=== PATIENT | female | born 1995 ===

== ENCOUNTER 2020-01-16 15:26 | Emergency (ER) | payer BC ==
[2020-01-16 15:36] VITALS: BP 120/54; PULSE 87
[2020-01-16] MEDS ORDERED: Ondansetron 4 MG Tab.DIS PO ONE (16:04)
[2020-01-16] MEDS ORDERED: Ketorolac 60 MG/2 ML SDV IM ONE (16:51)
[2020-01-16] MEDS ORDERED: diphenhydrAMINE 50 MG Cap PO STA (16:51)
--- NOTE | 2020-01-16 16:56 | EDM.PDOC ---
ED HPI GENERAL MEDICAL PROBLEM - General Chief Complaint: General Stated Complaint: HEADACHE COVID Time Seen by Provider: 01/16/20 15:55 Source of Information: Reports: Patient History Limitations: Reports: No Limitations - History of Present Illness INITIAL COMMENTS - FREE TEXT/NARRATIVE: HISTORY AND PHYSICAL: History of present illness: Patient is a 25-year-old female who presents to the ED today with desire for medication to help alleviate COVID-19 symptoms. Patient states her and her were both diagnosed with COVID-19 on 01/13/2020 and states that since then she has had a headache, nausea without vomiting, and loss of taste and smell. Patient states she also has generalized body aches. Patient states that she has issues with migraines and feels that the COVID-19 has triggered a migraine and would like some medication to help decrease her migraine symptoms. Patient denies any head injury or trauma. Patient states that she took 1 dose of Aleve earlier this morning but has not taken any others medications for her symptoms today. Patient denies any health history. Patient denies fever, chills, chest pain, shortness of breath, or cough. Denies neck stiff ness, change in vision, syncope, or near syncope. Denies vomiting, abdominal pain, diarrhea, constipation, or dysuria. Has not noted any blood in urine or stool. Review of systems: As per history of present illness and below otherwise all systems reviewed and negative. Past medical history: As per history of present illness and as reviewed below otherwise noncontributory. Surgical history: As per history of present illness and as reviewed below otherwise noncontributory. Social history: See social history for further information Family history: As per history of present illness and as reviewed below otherwise noncontributory. Physical exam: General: Patient is alert, oriented, and in no acute distress. Patient sitting comfortably on exam table. Vital stable and reviewed by me. HEENT: Atraumatic, normocephalic, pupils equal and reactive bilaterally, negative for conjunctival pallor or scleral icterus, mucous membranes moist, TMs normal bilaterally, throat clear, neck supple, nontender, trachea midline. No drooling or trismus noted. No meningeal signs. No hot potato voice noted. Lungs: Clear to auscultation, breath sounds equal bilaterally, chest nontender. Heart: S1S2, regular rate and rhythm without overt murmur Abdomen: Soft, nondistended, nontender. Negative for masses or hepatosplenomegaly. Negative for costovertebral tenderness. Pelvis: Stable nontender. Genitourinary: Deferred. Rectal: Deferred. Skin: Intact, warm, dry. No lesions or rashes noted. Extremities: Atraumatic, negative for cords or calf pain. Neurovascular unremarkable. Neuro: Awake, alert, oriented. Cranial nerves II through XII unremarkable. Cerebellum unremarkable. Motor and sensory unremarkable throughout. Exam nonfocal. Notes: Signs and symptoms that would prompt return to the ED thoroughly discussed with patient. Discussed importance for follow-up with a primary care provider. Voices understanding and is agreeable to plan of care. Denies any further questions or concerns at this time. Diagnostics: [facility] [place] Therapeutics: Toradol, Zofran Prescription: Zofran Impression: COVID19 infection Plan: 1. Your vital signs and oxygen saturation are well enough that you were able to monitor your symptoms at home. Continue to monitor for trouble breathing, new confusion or inability to arouse, bluish lips or face or any of the other symptoms we discussed -if this occurs please return to the emergency room.Continue to monitor your health at home for worsening symptoms so that you can be taken care of and treated quickly if needed. 2. Please self quarantine until 10 days have passed since your symptoms began AND you are fever free (<100.4 degrees fahrenheit) for 24 hours without the use of fever-reducing medications AND symptoms are improving. You should restrict a ctivities outside of your home, except for getting medical care. Do not go to work, school, or public areas. Avoid using public transportation, ride-sharing, or taxis. Inform any persons that you have been in contact with since you started becoming symptomatic that you have tested positive; they should be made aware and take the appropriate steps as needed. 3. You may alternate Tylenol and ibuprofen as needed for pain and fever management. 4. The [place] COVID 19 Hotline phone number , They are open Saturday - Saturday 7am - 7pm. Follow up with your primary care provider for re-evaluation and re-testing after quarantine and discuss when you should be seen. 5. For more specific guidelines regarding isolation/quarantine please visit this website. https://www.health.[place].gov/sites/www/ files/documents/Files/MELANIE/coronavirus/Factsheet_for_People_With_COVID-19.pdf Definitive disposition and diagnosis as appropriate pending reevaluation and review of above. Head Pain Score (Numeric/FACES): 8 - Related Data Allergies Allergy/AdvReac Type Severity Reaction Status Date / Time No Known Allergies Allergy Verified 01/16/20 15:33 Home Meds: Home Meds Ondansetron [Zofran ODT] 4 mg PO Q6H PRN #8 tab.dis 01/16/20 [Rx] Past Medical History - Past Health History Medical/Surgical History: Denies Medical/Surgical History - Infectious Disease History Infectious Disease History: Reports: Chicken Pox - Past Surgical History HEENT Surgical History: Reports: Other (See Below), Tonsillectomy GI Surgical History: Reports: Other (See Below) Other GI Surgeries/Procedures: mass removal Social & Family History - Family History Family Medical History: Noncontributory - Tobacco Use Tobacco Use Status *Q: Never Tobacco User - Caffeine Use Caffeine Use: Reports: None - Recreational Drug Use Recreational Drug Use: No ED ROS GENERAL - Review of Systems Review Of Systems: Comprehensive ROS is negative, except as noted in HPI. ED EXAM, GENERAL - Physical Exam Exam: See Below (see dictation) Course - Vital Signs Last Recorded V/S: Last Vital Signs Temp 96.2 F L 01/16/20 15:33 Pulse 87 01/16/20 15:33 Resp 20 01/16/20 15:33 BP 120/54 L 01/16/20 15:33 Pulse Ox 98 01/16/20 15:33 - Orders/Labs/Meds Orders: Active Orders 24 hr Category Date Time Status Ketorolac [Toradol] Med 01/16/20 16:51 Once 60 mg IM ONETIME ONE diphenhydrAMINE [Benadryl] Med 01/16/20 16:51 Stat 50 mg PO NOW STA Medication Orders Ketorolac Tromethamine (Toradol) 60 mg IM ONETIME ONE Stop: 01/16/20 16:52 Labs: Laboratory Tests 01/16/20 Range/Units 16:35 Urine HCG, Qual NEGATIVE (NEGATIVE) Meds: Medications Generic Name Dose Route Start Last Admin Trade Name Freq PRN Reason Stop Dose Admin Ketorolac Tromethamine 60 mg 01/16/20 16:51 Toradol IM 01/16/20 16:52 ONETIME ONE Discontinued Medications Generic Name Dose Route Start Last Admin Trade Name Leon PRN Reason Stop Dose Admin Ondansetron HCl 4 mg 01/16/20 16:04 01/16/20 16:37 Zofran Odt PO 01/16/20 16:05 4 mg ONETIME ONE Administration Departure - Departure Time of Disposition: 16:53 Disposition: Home, Self-Care 01 Clinical Impression: COVID-19 virus infection - Discharge Information Referrals: PCP,None [Primary Care Provider] - Additional Instructions: The following information is given to patients seen in the emergency department who are being discharged to home. This information is to outline your options for follow-up care. We provide all patients seen in our emergency department with a follow-up referral. The need for follow-up, as well as the timing and circumstances, are variable depending upon the specifics of your emergency department visit. If you don't have a primary care physician on staff, we will provide you with a referral. We always advise you to contact your personal physician following an emergency department visit to inform them of the circumstance of the visit and for follow-up with them and/or the need for any referrals to a consulting specialist. The emergency department will also refer you to a specialist when appropriate. This referral assures that you have the opportunity for follow-up care with a specialist. All of these measure are taken in an effort to provide you with optimal care, which includes your follow-up. Under all circumstances we always encourage you to contact your private physician who remains a resource for coordinating your care. When calling for follow-up care, please make the office aware that this follow-up is from your recent emergency room visit. If for any reason you are refused follow-up, please contact the [facility] Emergency Department at and asked to speak to the emergency department charge nurse. [facility] [address] [place] [id number] [id number] 1. Your vital signs and oxygen saturation are well enough that you were able to monitor your symptoms at home. Continue to monitor for trouble breathing, new confusion or inability to arouse, bluish lips or face or any of the other symptoms we discussed -if this occurs please return to the emergency room.Continue to monitor your health at home for worsening symptoms so that you can be taken care of and treated quickly if needed. 2. Please self quarantine until 10 days have passed since your symptoms began AND you are fever free (<100.4 degrees fahrenheit) for 24 hours without the use of fever-reducing medications AND symptoms are improving. You should restrict activities outside of your home, except for getting medical care. Do not go to work, school, or public areas. Avoid using public transportation, ride-sharing, or taxis. Inform any persons that you have been in contact with since you started becoming symptomatic that you have tested positive; they should be made aware and take the appropriate steps as needed. 3. You may alternate Tylenol and ibuprofen as needed for pain and fever management. 4. The [place] COVID 19 Hotline phone number , They are open Saturday - Saturday 7am - 7pm. Follow up with your primary care provider for re-evaluation and re-testing after quarantine and discuss when you should be seen. 5. For more specific guidelines regarding isolation/quarantine please visit this website. https:// www.health.[place].gov/sites/www/files/documents/Files/MELANIE/coronavirus/Factsheet_for_ People_With_COVID-19.pdf Sepsis Event Note (ED) - Evaluation Sepsis Screening Result: No Definite Risk - Focused Exam Vital Signs: Vital Signs Temp Pulse Resp BP Pulse Ox 01/16/20 15:33 96.2 F L 87 20 120/54 L 98 - My Orders Last 24 Hours: My Active Orders 01/16/20 16:51 Ketorolac [Toradol] 60 mg IM ONETIME ONE 01/16/20 16:51 diphenhydrAMINE [Benadryl] 50 mg PO NOW STA - Assessment/Plan Last 24 Hours: My Active Orders 01/16/20 16:51 Ketorolac [Toradol] 60 mg IM ONETIME ONE 01/16/20 16:51 diphenhydrAMINE [Benadryl] 50 mg PO NOW STA
== END 2020-01-16 17:48 | disposition home or self-care (01) ==
LOC: MW.ED 15:26
DX: U07.1 COVID-19 (principal)
CPT/HCPCS: 81025; 96372; 99284; A9270; J1885; 99283